=== PATIENT | female | born 1995 | race Caucasian/White ===

== ENCOUNTER 2023-09-02 09:29 | Outpatient (CLI) | payer BC, SELFPAY | END 2023-09-02 09:30 | disposition home or self-care (01) | LOC: NFLDREF 09-06 14:58 | PROVIDERS: PCP Physician Assistant Medical; Referring Provider Physician Assistant Medical; Visit Provider Physician Assistant Medical | DX: E03.9 Hypothyroidism, unspecified (principal); Z13.228 Encounter for screening for other metabolic disorders; Z13.220 Encounter for screening for lipoid disorders | CPT/HCPCS: 80053; 80061; 84439; 84443 ==

== ENCOUNTER 2024-04-12 08:29 | Outpatient (CLI) | payer BC, SELFPAY | END 2024-04-12 08:30 | disposition home or self-care (01) | LOC: FRMREF 08:29 | PROVIDERS: PCP Physician Assistant Medical; Visit Provider Physician Assistant Medical | DX: E03.9 Hypothyroidism, unspecified (principal) | CPT/HCPCS: 84443 ==

== ENCOUNTER 2024-10-05 10:58 | Outpatient (CLI) | payer BC, SELFPAY | END 2024-10-05 10:59 | disposition home or self-care (01) | LOC: FRMREF 11:00 | PROVIDERS: PCP Physician Assistant Medical; Visit Provider Physician Assistant Medical | DX: R10.9 Unspecified abdominal pain (principal); E03.9 Hypothyroidism, unspecified; N94.6 Dysmenorrhea, unspecified; Z79.3 Long term (current) use of hormonal contraceptives | CPT/HCPCS: 84443; 87086 ==